=== PATIENT | female | born 1975 | race Caucasian/White ===

== ENCOUNTER 2017-04-24 07:57 | Day surgery (SDC) | payer OTHER ==
[2017-04-20 13:53] VITALS: BMI 24.0
--- NOTE | 2017-04-24 07:32 | HP ---
History & Physical Update - History History: No Change - Physical Physical: No Change - Assessment Assessment: No Change - Plan Plan: No Change
[~2017-04-24 07:57] MED LIST: ACETAMINOPHEN 325 MG TABLET (FP) PO PRN; IBUPROFEN 400 MG TABLET (FP) PO PRN; oxyCODONE HCL 5 MG TABLET PO PRN
[2017-04-24] MEDS ORDERED: PROPOFOL 20 ML ONE (10:39)
[2017-04-24] MEDS ORDERED: MIDAZOLAM HCL 2 MG/2 ML SINGLE DOSE VIAL ONE ×3 (10:39→12:37)
[2017-04-24] MEDS ORDERED: DEXAMETHASONE SOD PHOSPHATE 4 MG/1 ML VIAL ONE ×2 (11:08→11:09)
[2017-04-24] MEDS ORDERED: oxyCODONE HCL 5 MG TABLET PO PRN (11:37)
[2017-04-24] MEDS ORDERED: ONDANSETRON 4 MG/2 ML VIAL IVPUSH PRN (11:37)
[2017-04-24] MEDS ORDERED: KETOROLAC TROMETHAMINE 30 MG/1 ML VIAL IVPUSH ONE ×2 (11:37→11:40)
[2017-04-24] MEDS ORDERED: ACETAMINOPHEN 1000 MG/100 ML VIAL (NON FORMULARY) IVPB ONE ×2 (11:37→11:45)
[2017-04-24] MEDS ORDERED: PROMETHAZINE HCL 25 MG/1 ML VIAL IVPUSH PRN (11:37)
[2017-04-24] MEDS ORDERED: ACETAMINOPHEN INJECTION 100 ML IVPB ONE (11:37)
[2017-04-24] MEDS ORDERED: KETOROLAC TROMETHAMINE 30 MG/1 ML VIAL ONE (11:37)
[2017-04-24] MEDS ORDERED: LACTATED RINGERS SOLUTION 1,000 ML IV SCH (11:45)
--- NOTE | 2017-04-24 12:06 | OP ---
Operative Note - Note: Operative Date: 04/24/17 Pre-Operative Diagnosis: Submucosal myoma. Menorrhagia Operation: Hysteroscopic Myomectomy. Suction DC Findings: 2cm submucosal myoma Post-Operative Diagnosis: Same as Pre-op Surgeon: Ronna Cardona Anesthesia: General Specimens Removed: submucosal myoma 2 cm Estimated Blood Loss (mls): 5 Operative Report Dictated: Yes
[2017-04-24] MEDS ORDERED: MIDAZOLAM HCL 2 MG/2 ML SINGLE DOSE VIAL IVPUSH ONE (12:40)
[2017-04-24 13:19] VITALS: TEMP 98
--- NOTE | 2017-04-24 13:39 | HP ---
Satellite H - Chief Complaint Chief Complaint: menorrhagia. submucosal myoma History of Present Illness: 41 with submosal myoma for hysteroscopic myomectomy. Suction DC History Source: Patient Limitations to Obtaining History: No Limitations - Past Medical History Allergies/Adverse Reactions: Allergies Allergy/AdvReac Type Severity Reaction Status Date / Time No Known Drug Allergies Allergy Verified 04/24/17 08:16 ...LMP: 04/10/17 - Current Medications Current Medications: Home Medications Medication Instructions Recorded Zolpidem Tartrate [Ambien] 10 mg PO HS 08/25/14 Clonazepam [Klonopin] 1 mg PO TID 04/24/17 Oxycodone HCl/Acetaminophen 1 each PO TID 04/24/17 [Percocet 10-325 mg Tablet] Oxycodone HCl/Acetaminophen 1 - 2 tab PO Q6H #20 tab MDD 6 04/24/17 [Percocet 5-325 mg Tablet] Tizanidine HCl [Zanaflex] 4 mg PO TID 04/24/17 Satellite Physical Exam - Physical Examination Vital Signs: Vital Signs Period Temp Pulse Resp BP Sys/Schuster Pulse Ox Last 24 Hr 97.4 F-98.0 F 82-92 16-20 114-132/68-97 10-100 General Appearance: Well Nourished, Well Developed Lung: Clear to auscultation Heart: Regular rate & rhythm Breasts: Soft, Non-Tender Abdomen: Soft, No tenderness Extremities: No edema Pelvic Exam: Within normal limits External Genitalia, Within normal limits Vagina, Within normal limits Cervix, Within normal limits [place], Other Uterus (submucosal myoma) Neurological: Intact, Alert, Oriented Satellite Impression/Plan - Impression/Plan Impression: Submucosal myoma. menorrhagia Operative Procedure: Hysteroscopic myomectomy. Suction DC Date to be Performed: 04/24/17
[2017-04-24] MEDS ORDERED: oxyCODONE HCL 5 MG TABLET ONE (13:46)
[2017-04-24 14:38] VITALS: BP 119/76; PULSE 83
--- NOTE | 2017-04-25 08:24 | OP ---
DATE OF OPERATION: 04/24/2017 PREOPERATIVE DIAGNOSES: Submucosal myoma, menorrhagia. OPERATION: Hysteroscopic myomectomy, suction dilatation and curettage. POSTOPERATIVE DIAGNOSES: Submucosal myoma, menorrhagia. SURGEON: Ronna Cardona MD ANESTHESIA: General. ANESTHESIOLOGIST: SPECIMEN REMOVED: Submucosal myoma. PROCEDURE: Patient was taken to the operating room, placed in dorsal lithotomy position, prepped and draped in the usual sterile fashion. A timeout was performed in accordance with hospital regulation. Speculum was placed in the vagina. Anterior lip of the cervix grasped with a single-tooth tenaculum. Cervix was then dilated to accommodate the hysteroscope. Operative hysteroscopy revealed a large anterior submucosal myoma. Cautery and cutting was then used to remove myoma and perform a hysteroscopic myomectomy. Specimen was submitted to Pathology. Suction D&C was then performed. All contents were emptied. Hysteroscopy revealed normal cavity. All instruments then removed. Patient had tolerated the procedure well. Estimated blood loss 5 mL. RONNA CARDONA M.D. [id number]
--- NOTE | 2017-04-25 09:12 | OP ---
DATE OF OPERATION: 04/24/2017 PREOPERATIVE DIAGNOSIS: Menorrhagia, submucosal myoma. POSTOPERATIVE DIAGNOSIS: Menorrhagia, submucosal myoma. OPERATION: Hysteroscopic myomectomy, suction dilatation and curettage, FINDINGS: A 2-cm submucosal myoma located in the anterior portion of the uterus. SURGEON: Ronna Cardona MD ANESTHESIA: General. PROCEDURE: Patient was taken to the operating room, placed in dorsal lithotomy position, prepped and draped in the usual sterile fashion. A speculum was placed in the vagina, anterior lip of the cervix was grasped with a single-tooth tenaculum. Cervix was then dilated to accommodate the operative hysteroscope. Submucosal myoma was seen anteriorly, and cautery and cutting was then used to remove the myoma. This was followed by a suction dilatation and curettage. All contents were removed and submitted to Pathology. Hemostasis was achieved. All instruments were then removed. Patient tolerated the procedure well. Estimated blood loss was 5 mL. RONNA CARDONA M.D. [id number]
--- NOTE | 2017-04-25 14:37 | PATH ---
Surgical Pathology Report Patient Name: GEORGE ELIZONDO [facility]. Rec. #: [id number] /Age/Gender: 1975 (Age: 41) / F Account: [id number] Location: AMBULATORY SURG Taken: 04/24/2017 Received: 04/24/2017 Reported: 04/25/2017 Physicians: Ronna Cardona M.D. Specimen(s) Received SUBMUCOSAL MYOMA Clinical History Submucosal myoma Final Diagnosis UTERUS, HYSTEROSCOPIC MYOMECTOMY: BENIGN ENDOMETRIAL POLYP. Electronically Signed Hector Jenkins M.D. Gross Description Received in formalin labeled "submucosal myoma," is a 2 g, 3.3 x 2.0 x 0.3 cm aggregate of woo-pink soft tissue fragments. The formalin is filtered and the specimen is entirely submitted in 2 cassettes. /04/24/2017 [place]/04/24/2017
== END 2017-04-24 14:39 | disposition home or self-care (01) ==
LOC: JASUSAT 07:57
PROVIDERS: ATTEND Obstetrics & Gynecology
PROC: 0UB98ZZ Excision of Uterus, Via Natural or Artificial Opening Endoscopic (ICD-10-PCS; principal; 2017-04-24 09:30)
PROC: 0UDB8ZX Extraction of Endometrium, Via Natural or Artificial Opening Endoscopic, Diagnostic (ICD-10-PCS; 2017-04-24 09:30)
DX: N92.0 Excessive and frequent menstruation with regular cycle (principal); D25.0 Submucous leiomyoma of uterus
CPT/HCPCS: 88305-TC; 94760; J0131

== ENCOUNTER 2018-11-27 08:32 | Emergency (ER) | payer OTHER ==
[2018-11-27 08:57] VITALS: BP 107/65; PULSE 79; TEMP 98.5; BMI 23.0
[2018-11-27] MEDS ORDERED: TETANUS AND DIPHTHERIA TOXOID 0.5 ML DISP.SYRIN IM ONE (09:21)
--- NOTE | 2018-11-27 09:21 | PDOC ---
History of Present Illness - General Chief Complaint: Wound Stated Complaint: TETANUS SHOT/ CUT Time Seen by Provider: 11/27/18 08:59 - History of Present Illness Initial Comments: 11/27/18 09:18 CHIEF COMPLAINT: request for tetanus HISTORY OF PRESENT ILLNESS: 43 yo F with hx of asthma presents to [facility] requesting tetanus shot after injury 5 days ago. 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 She denies any trismus, diaphoresis, fever, nausea, vomiting, palpitations. She reports noticing a bruise to her right forearm that she "may have bumped while cleaning." No recent travel or sick contacts. PAST MEDICAL HISTORY: Denies past medical history FAMILY HISTORY: Denies SOCIAL HISTORY: Denies tobacco, alcohol, illicit drug use. SURGICAL HISTORY: Denies ALLERGIES: No known drug allergies REVIEW OF SYSTEMS General/Constitutional: Denies fever or chills. Denies weakness, weight change. HEENT: Denies change in vision. Denies ear pain or discharge. Denies sore throat. Cardiovascular: Denies chest pain or shortness of breath. Respiratory: Denies cough, wheezing, or hemoptysis. Gastrointestinal: Denies nausea, vomiting, diarrhea or constipation. Denies rectal bleeding. Genitourinary: Denies dysuria, frequency, or change in urination. Musculoskeletal: Denies joint or muscle swelling or pain. Denies neck or back pain. Skin: Cut to right index finger. Neurologic: Denies headache, vertigo, loss of consciousness, or loss of sensation. Psychiatric: Denies depression or anxiety. Endocrine: Denies increased thirst. Denies abnormal weight change. Hematologic/Lymphatic: Denies anemia, easy bleeding, or history of blood clots. Allergic/Immunologic: Denies hives or skin allergy. Denies latex allergy. PHYSICAL EXAM General Appearance: Well-appearing, appropriately dressed. No apparent distress , no intoxication. HEENT: EOMI, PERRLA, normal ENT inspection, normal voice, TMs normal, pharynx normal. No conjunctival pallor. No photophobia, scleral icterus. Neck: Supple. Trachea midline. No tenderness, rigidity, carotid bruit, stridor , lymphadenopathy, or thyromegaly. Respiratory/Chest: Lungs CTAB. No shortness of breath, chest tenderness, respiratory distress, accessory muscle use. No crackles, rales, rhonchi, stridor , wheezing, dullness Cardiovascular: RRR. S1, S2. No JVD, murmur, bradycardia, tachycardia. Vascular Pulses: Dorsalis-Pedis (R): 2+, Dorsalis-Pedis (L): 2+ Gastrointestinal/Abdominal: Normal bowel sounds. Abdomen soft, non-distended. No tenderness or rebound tenderness. No organomegaly, pulsatile mass, guarding , hernia, hepatomegaly, splenomegaly. Lymphatic: No adenopathy, tenderness. Musculoskeletal/Extremities: Normal inspection. FROM of all extremities, normal capillary refill. Pelvis Stable. No CVA tenderness. No tenderness to extremities, pedal edema, swelling, erythema or deformity. Integumentary: Healed skin avulsion to tip of right index finger, no active bleeding. Mild ecchymosis to anterior forearm. Appropriate color, dry, warm. 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 Fully oriented, alert. Appropriate mood/affect. Motor strength 5/5. No appreciable EOM palsy, facial droop or sensory deficit. 11/27/18 09:21 \\ Past History - Past Medical History Allergies/Adverse Reactions: Allergies Allergy/AdvReac Type Severity Reaction Status Date / Time No Known Drug Allergies Allergy Verified 11/27/18 08:54 Home Medications: Ambulatory Orders Zolpidem Tartrate [Ambien] 10 mg PO HS 08/25/14 Clonazepam [Klonopin] 1 mg PO TID 04/24/17 Oxycodone HCl/Acetaminophen [Percocet 10-325 mg Tablet] 1 each PO TID 04/24/17 Oxycodone HCl/Acetaminophen [Percocet 5-325 mg Tablet] 1 - 2 tab PO Q6H #20 tab MDD 6 04/24/17 Tizanidine HCl [Zanaflex] 4 mg PO TID 04/24/17 Anemia: No Asthma: Yes (NO RECENT ATTACK >1YEAR) Cancer: No Cardiac Disorders: No CVA: No COPD: No CHF: No Dementia: No Diabetes: No GI Disorders: No Disorders: No HTN: No Hypercholesterolemia: No Liver Disease: No Seizures: No Thyroid Disease: No - Surgical History Abdominal Surgery: No Appendectomy: No Cardiac Surgery: No Cholecystectomy: No Lung Surgery: No Neurologic Surgery: No Orthopedic Surgery: Yes (LEFT SHOULDER SX) - Immunization History Immunization Up to Date: No - Psycho Social/Smoking Cessation Hx Smoking Status: Yes Smoking History: Former smoker Have you smoked in the past 12 months: No Number of Cigarettes Smoked Daily: 10 If you are a former smoker, when did you quit?: 14 MONTH AGO Information on smoking cessation initiated: No 'Breaking Loose' booklet given: 04/24/17 Hx Alcohol Use: No Drug/Substance Use Hx: No Substance Use Type: Alcohol Hx Substance Use Treatment: No *Physical Exam - Vital Signs Last Vital Signs Temp Pulse Resp BP Pulse Ox 98.5 F 79 18 107/65 99 11/27/18 08:54 11/27/18 08:54 11/27/18 08:54 11/27/18 08:54 11/27/18 08:54 Medical Decision Making - Medical Decision Making 11/27/18 09:27 43 yo F with hx of asthma presents to [facility] requesting tetanus shot after injury 5 days ago. -tdap Discharge - Discharge Information Problems reviewed: Yes Clinical Impression/Diagnosis: Need for Tdap vaccination Condition: Stable Disposition: HOME - Admission No - Follow up/Referral Referrals: Melanie Fisher NP [Primary Care Provider] - - Patient Discharge Instructions Patient Printed Discharge Instructions: Tetanus, Diphtheria, Pertussis (Tdap) Vaccine - Post Discharge Activity
[2018-11-27] MEDS ORDERED: DIPHTH,PERTUSS(ACELL),TET 0.5 ML DISP.SYRIN IM ONE ×2 (09:25)
== END 2018-11-27 09:47 | disposition home or self-care (01) ==
LOC: JERFT 08:32
PROC: 3E0234Z Introduction of Serum, Toxoid and Vaccine into Muscle, Percutaneous Approach (ICD-10-PCS; principal; 2018-11-27)
DX: Z23 Encounter for immunization (principal); S61.200A Unspecified open wound of right index finger without damage to nail, initial encounter; W31.82XA Contact with other commercial machinery, initial encounter; Y93.G1 Activity, food preparation and clean up; Y92.512 Supermarket, store or market as the place of occurrence of the external cause; Y99.0 Civilian activity done for income or pay
CPT/HCPCS: 90471; 90715; 99281-25

== ENCOUNTER 2022-11-24 14:30 | Emergency (ER) | payer OTHER ==
[2022-11-24 14:38] VITALS: BP 132/87; PULSE 96; RESP 17; TEMP 98.3; BMI 26.0
[2022-11-24] MEDS ORDERED: IBUPROFEN 600 MG TABLET (FP) PO ONE ×2 (14:48→14:55)
== END 2022-11-24 15:42 | disposition home or self-care (01) ==
LOC: JERFT 14:30
DX: M79.642 Pain in left hand (principal); R22.32 Localized swelling, mass and lump, left upper limb; W10.9XXA Fall (on) (from) unspecified stairs and steps, initial encounter
CPT/HCPCS: 73130-TC-LT-FY; 99283-25